=== PATIENT | male | born 1990 | race Caucasian/White ===

== ENCOUNTER 2020-06-17 08:05 | Emergency (ER) | payer SELFPAY ==
[2020-06-17 08:25] VITALS: BP 154/87; PULSE 116; RESP 16; TEMP 36.7; O2SAT 99
--- NOTE | 2020-06-17 08:29 | ED.SKABFB ---
HPI - Skin/Abscess/Foreign Bdy General Chief complaint: Urogenital-Male Stated complaint: Urogenital-male Time Seen by Provider: 06/17/20 08:30 Source: patient Mode of arrival: ambulatory Limitations: no limitations History of Present Illness HPI narrative: Danny White is a 29 yo male with a hx of testicular swelling and urinary stricture comes to express care with R testicular swelling and tenderness. Last incidence of testicular swelling was about 4 years ago when he was treated through express care here with abx and when symptoms did not improve, went to [facility] got getting an ultrasound and more abx. States he is in a monogamous relationship and is confident this is not STD related. Patient states when he is sitting still the pain is about 4.5 but if he touches the testicle or removes is 7.5/10.started Thursday night Related Data Allergies Allergy/AdvReac Type Severity Reaction Status Date / Time No Known Allergies Allergy Verified 06/17/20 08:29 Review of Systems Review of Systems: Narrative: CONSTITUTIONAL: Denies fever, chills, sweats. EYES: Denies visual changes, redness, discharge. ENT: Denies rhinorrhea, congestion, sore throat, otalgia. CARDIOVASCULAR: Denies chest pain, palpitations, edema. RESPIRATORY: Denies dyspnea, wheezing, cough GASTROINTESTINAL: Denies abdominal pain, nausea, vomiting, diarrhea. GENITOURINARY: Denies dysuria, hematuria, abnormal discharge. Large tender right testicle SKIN: Denies rash or itching. NEUROLOGIC: Denies numbness, or focal weakness. PSYCHIATRIC: Denies anxiety or depression. [facility] Past Medical History Medical History Anastomotic stricture of urinary tract Family History Family History (Updated 06/17/20 @ 08:41 by Barbara Serrano CNP) Other No active medical problems Social History Social History (Updated 06/17/20 @ 08:42 by Barbara Serrano CNP) Smoking status: Never smoker Alcohol intake: current Gender identity (if verbalized by the patient): Male Comments At time of signature, I agree with nursing past medical, surgical, social and family history. There is no relevant family history pertinent to the presenting complaint. Patient's blood pressure and pulse are elevated due to pain from testicular swelling- sent to [facility] Exam Narrative: Exam Narrative: GENERAL: This is a well-nourished, well-developed patient, in mild distress. HEAD: normocephalic, atraumatic. EYES: Sclera clear/white. Vision is grossly intact. EARS: External ears normal. Hearing grossly intact. NOSE: External nose normal without nasal discharge, nares without redness, no rhinorrhea. THROAT: Mucous membranes moist, NECK: Neck supple, CARDIOVASCULAR: Regular rate and rhythm without murmurs, gallops, or rubs. RESPIRATORY: Clear to auscultation. Breath sounds equal bilaterally. No wheezes, rales, or rhonchi. GASTROINTESTINAL: Abdomen soft, : R testicle swollen, tender, not indurated, pain elicited with palpation SKIN: warm, intact with no suspicious lesions or rash, good texture and turgor. NEURO: awake, alert, and oriented to person, place and time. There were no obvious focal neurologic abnormalities. Steady gait EXTREMITIES: Normal range of motion. BACK: Nontender without deformity Course Course Emergency Course: Came to express care with enlarged right testicle After examination and UA which shows 1+ leukocytes, trace blood sent to [facility] for ultrasound of testicles Vital Signs Vital signs: Vital Signs Temperature 98.0 F 06/17/20 08:25 Pulse Rate 116 H 06/17/20 08:25 Respiratory Rate 16 06/17/20 08:25 Blood Pressure 154/87 H 06/17/20 08:25 Pulse Oximetry 99 06/17/20 08:25 Temperature 98.0 F 06/17/20 08:25 Pulse Rate 116 H 06/17/20 08:25 Respiratory Rate 16 06/17/20 08:25 Blood Pressure 154/87 H 06/17/20 08:25 Pulse Oximetry 99 06/17/20 08:25 MDM - Skin/Abs
== END 2020-06-17 08:48 | disposition short-term general hospital (02) ==
PROVIDERS: Emergency Provider Nurse Practitioner
DX: N50.89 Other specified disorders of the male genital organs (principal)
CPT/HCPCS: 81003; 99213; G0463

== ENCOUNTER 2020-06-17 09:01 | Emergency (ER) | payer SELFPAY ==
--- NOTE | ~2020-06-17 | US_ITS ---
EXAMINATION: US scrotum doppler DATE: 06/17/2020 10:23 INDICATION: Right testicular pain and swelling. TECHNIQUE: Grayscale and Doppler ultrasound images of the testes were obtained. COMPARISON: None. FINDINGS: The right testis measures 4.3 x 3.5 x 1.9 cm. The left testis measures 5.2 x 2.9 x 2.3 cm. There is normal vascular flow to both testes. The right epididymis is enlarged and heterogeneous with increased vascular flow, consistent with epididymitis. The left epididymis is normal with normal vas cular flow. There is a small right hydrocele. There is a left-sided varicocele. IMPRESSION: 1. Right-sided epididymitis. 2. Small right hydrocele. Reviewed, dictated and finalized at location A. [facility] [employer]
[2020-06-17 09:06] VITALS: BP 139/98; PULSE 101; RESP 16; TEMP 36.1; O2SAT 97
[2020-06-17 09:09] VITALS: BP 139/98; PULSE 98; RESP 18; TEMP 36.6; O2SAT 98
[2020-06-17] MEDS: KETOROLAC (*BKC) 60 MG/2 ML VIAL IM (10:24)
[2020-06-17 10:34] LABS: Add Urine Microscopic? YES; Appearance Urine Clear (Clear); Bilirubin Urine Negative (Negative); Color Urine Yellow (Yellow); Glucose Urine UA Negative (Negative); Ketones Urine Negative (Negative); Leukocyte Esterase Ur 2+ LEU/UL (Negative); Mucus Urine Heavy /lpf; Nitrate Urine Negative (Negative); Protein Urine 1+ mg/dL (Negative); WBC Urine 51-75 /hpf
[2020-06-17 10:42] LABS: Blood Urine Negative (Negative); Specific Grav Ur 1.033 (1.001-1.035)
[2020-06-17 10:54] VITALS: TEMP 36.6
--- NOTE | 2020-06-17 11:14 | ED.MALEGU ---
HPI - Male Genitourinary General Chief complaint: Urogenital-Male Stated complaint: swollen right testicle Time Seen by Provider: 06/17/20 09:11 History of Present Illness HPI Narrative: Patient is a 29-year-old male who presents ER with right testicular pain and swelling from the urgent care. Patient reports he has history of epididymitis and that he also has history of urethral stricture in the past that had to be dilated. Reports he sexually active with one partner over the last 2 years and does not feel like he is at risk for sexual transmitted infection. Reports no penile discharge. He would however like an STD check just to clear the air. No fevers or chills or sweats. Pain is increased with movement. Swelling is been ongoing for last couple of days. Related Data Allergies Allergy/AdvReac Type Severity Reaction Status Date / Time No Known Allergies Allergy Verified 06/17/20 09:14 Review of Systems Constitutional: Constitutional: Denies chills, Denies fever(s) and Denies weakness Gastrointestinal: Gastrointestinal: Denies abdominal pain, Denies nausea and Denies vomiting Genitourinary: Genitourinary: Denies genital lesions, Reports dysuria, Reports testicular pain and Denies urinary frequency PMFSH Past Medical History Medical History (Updated 06/17/20 @ 11:20 by Raza Hill MD) Anastomotic stricture of urinary tract Epididymitis Family History Family History (Updated 06/17/20 @ 08:41 by Barbara Serrano CNP) Other No active medical problems Social History Social History (Updated 06/17/20 @ 08:42 by Barbara Serrano CNP) Smoking status: Never smoker Alcohol intake: current Gender identity (if verbalized by the patient): Male Exam Narrative: Exam Narrative: GENERAL: Well-appearing, well-nourished, and in no acute distress. HEAD: Normocephalic, atraumatic. : Normal-appearing circumcised penis without drainage from the urethra, normal-appearing left testicle, right testicle swollen with tenderness over the epididymis and slight redness to the outer part of the scrotum. SKIN: Warm, dry, no rash. NEURO: Alert and oriented x3. PSYCH: Normal mood and affect. Course Course Emergency Course: Patient informed results. Discharge home with pain medication antibiotics. Recommend follow-up with urology. Vital Signs Vital signs: Vital Signs Temperature 97 F L 06/17/20 09:06 Pulse Rate 101 H 06/17/20 09:06 Respiratory Rate 16 06/17/20 09:06 Blood Pressure 139/98 H 06/17/20 09:06 Pulse Oximetry 97 06/17/20 09:06 Temperature 97.8 F 06/17/20 10:54 Pulse Rate 98 06/17/20 09:09 Respiratory Rate 18 06/17/20 09:09 Blood Pressure 139/98 H 06/17/20 09:09 Pulse Oximetry 98 06/17/20 09:09 MDM - Male Genitourinary Lab Data Labs: Lab Results 06/17/20 06/17/20 Range/Units 09:35 10:22 Urine Color Yellow (Yellow) Urine Appearance Clear (Clear) Urine pH 5.0 (5.0-9.0) Ur Specific Fleming 1.033 (1.001-1.035) Urine Protein 1+ H (Negative) mg/dL Urine Glucose (UA) Negative (Negative) mg/dL Urine Ketones Negative (Negative) mg/dL Ur Blood (Man) Negative (Negative) Urine Nitrate Negative (Negative) Urine Bilirubin Negative (Negative) Urine Urobilinogen 4.0 H (<2.0) mg/dL Leukocyte Esterase Rfl 2+ H (Negative) DELORIS/UL Urine RBC 6-10 H (0-2) /hpf Urine WBC 51-75 H /hpf Urine Mucus Heavy H /lpf C.trachomatis RNA (TMA) Pending N.gonorrhoeae RNA (TMA) Pending Imaging Data Radiologist's impression: ITS Impressions Scrotum Ultrasound 06/17/20 10:28 IMPRESSION: 1. Right-sided epididymitis. 2. Small right hydrocele. Discharge Plan Discharge Clinical Impression: Epididymitis Patient Disposition: Home, Self-Care Condition: Stable Instructions: Antibiotic Form, Epididymitis (ED) Additional Instructions: Return to the ER if you have worsening pain, you cannot
[2020-06-17 11:33] VITALS: BP 136/78; PULSE 84; RESP 18; O2SAT 100
== END 2020-06-17 11:34 | disposition home or self-care (01) ==
PROVIDERS: Emergency Provider Emergency Medicine
DX: N45.1 Epididymitis (principal)
CPT/HCPCS: 76870; 81001; 87086; 87491; 87591; 93976; 96372; 99284; J1885

== ENCOUNTER 2021-07-10 17:17 | Emergency (ER) | payer OTHER, SELFPAY ==
[2021-07-10 17:28] VITALS: BP 134/81; PULSE 63; RESP 16; TEMP 37.3; O2SAT 98
--- NOTE | 2021-07-10 18:05 | ED.GENADULT ---
HPI - General Adult General Chief complaint: Upper Respiratory Infection Stated complaint: sore throat Source: patient Mode of arrival: ambulatory Limitations: no limitations History of Present Illness HPI narrative: Patient is a 30-year-old male who presents to the [facility] via POV for evaluation of a sore throat that began yesterday. Additionally, patient reports exudate, chills, swollen lymph nodes, and intermittent, frontal headaches. Subjective fever. Patient denies taking temperature with thermometer. Mild relief with ibuprofen. Swallowing worsens throat pain. He reports his pain is constant and sharp in nature. History of strep throat. Today symptoms are identical to previous episodes of strep. Patient is fully vaccinated against Covid and denies known exposure to sick contacts. Related Data Allergies Allergy/AdvReac Type Severity Reaction Status Date / Time No Known Allergies Allergy Verified 07/10/21 17:20 Review of Systems Review of Systems: Pertinent negatives: fever, poor p.o. intake, myalgias, flu-like symptoms, ear pain/drainage, sinus trouble, severe persistent headaches, nasal congestion, rhinorrhea, lymphadenopathy, dizziness, LOC, inability to swallow, drooling, hoarseness, abdominal pain, nausea, vomiting, diarrhea, cough, wheezing, sob, chest pain, heart murmurs, and heart palpations. PMFSH Past Medical History Medical History Anastomotic stricture of urinary tract Epididymitis Family History Family History Other No active medical problems Social History Social History Smoking status: Never smoker Alcohol intake: current Gender identity (if verbalized by the patient): Male Comments I have reviewed and agree with the patient's past medical, surgical, social, and family hx as documented by the RN. There is no relevant family history pertinent to the presenting complaint. Exam Narrative: GENERAL: Well-appearing, well-nourished, and in no acute distress. HEAD: Normocephalic, atraumatic. No sinus tenderness or facial swelling appreciated. EYES: PERRLA and EOMI. No evidence of erythema, swelling, or drainage. ENT: Bilateral external ears and ear canals normal. Bilateral TMs are normal.No TM perforation. Nares clear, no rhinorrhea or epistaxis. Bilateral turbinates without erythema/ swelling. Mucous membranes moist and pink. Uvula is midline without erythema and swelling. Bilateral tonsils are moderately erythematous and edematous with a moderate amount of exudate. No evidence of petechial rash, cobblestoning, lesions, ulcers, peritonsillar abscess, tenting, or drooling. voice normal. Breath odor-smells of rotten eggs. NECK: Supple. Bilateral submandibular lymphadenopathy appreciated. No cervical lymphadenopathy or nuchal rigidity appreciated. CHEST: Bilateral lung dye are clear to auscultation. No respiratory distress. No evidence of cough or pleuritic cp upon examination. HEART: Regular rate and rhythm. No murmur, gallop, or rub heard. EXTREMITIES: Normal range of motion. No edema. SKIN: Warm, dry, no rash. NEURO: No focal deficits. Alert and oriented x3. Course Course Emergency Course: The patient/guardian displays adequate decision making capability and despite a detailed discussion of alternatives, benefits, risks, and consequences refuses COVID-19 testing due to time constraints. Mother is waiting in lobby and is boarding a plane soon. Vital Signs Vital signs: Vital Signs Temperature 99.2 F 07/10/21 17:28 Pulse Rate 63 07/10/21 17:28 Respiratory Rate 16 07/10/21 17:28 Blood Pressure 134/81 07/10/21 17:28 Pulse Oximetry 98 07/10/21 17:28 Temperature 99.2 F 07/10/21 17:28 Pulse Rate 63 07/10/21 17:28 Respiratory Rate 16 07/10/21 17:28 Blood Pressure 134/
== END 2021-07-10 18:14 | disposition home or self-care (01) ==
PROVIDERS: Emergency Provider Nurse Practitioner Family
DX: J03.90 Acute tonsillitis, unspecified (principal)
CPT/HCPCS: 87081; 87880; 99213; G0463

== ENCOUNTER 2022-02-08 08:47 | Emergency (ER) | payer OTHER, SELFPAY ==
[2022-02-08 08:54] VITALS: BP 112/61; PULSE 84; RESP 16; TEMP 36.8; O2SAT 100
--- NOTE | 2022-02-08 08:55 | ED.URI ---
HPI - URI/Sore Throat General Stated Complaint: sore throat Time Seen by Provider: 02/08/22 08:58 Source: patient Mode of arrival: ambulatory Limitations: no limitations History of Present Illness HPI Narrative: Mr. White is a 31-year-old male patient presenting to the clinic today with complaints of sore throat, swollen glands, and body aches x1 day. He reports that he usually gets strep every 2 years and had strep back in June. He denies any known exposure to anybody with COVID, flu, or strep. He denies any known fever however he did have night sweats last night. Related Data Allergies Allergy/AdvReac Type Severity Reaction Status Date / Time No Known Allergies Allergy Verified 02/08/22 09:02 Review of Systems Review of Systems: Pertinent positives per HPI. Patient denies any fever, rash, headache, visual changes, dizziness, cough, runny nose, shortness of breath, chest pain, palpitations, nausea, vomiting, diarrhea, constipation, abdominal pain, or any urinary issues. PMFSH Past Medical History Medical History Anastomotic stricture of urinary tract Epididymitis Family History Family History Other No active medical problems Social History Social History Smoking status: Never smoker Alcohol intake: current Gender identity (if verbalized by the patient): Male Comments At the time of my signature, I reviewed and agree with the nursing past medical, surgical, social, and family history. There is no relevant family history pertinent to the patient complaint. Exam Narrative: General: Well-developed, well nourished, in no apparent distress Head: Normocephalic, atraumatic Eyes: Pupils equally round and reactive to light bilaterally, EOM intact, sclera and conjunctive clear, no discharge, lids normal Ears: TMs intact and clear, ear canals clear, no drainage, grossly hearing normal. Nose: Nares patent, no discharge, no inflammation, no sinus tenderness. Mouth: Oropharynx without lesions or masses, good dentition, MMM. Oropharynx red with 1+ tonsillar enlargement Neck: Supple, trachea midline, positive enlargement of anterior cervical nodes, no thyroid masses or goiter palpable. Cardio: Regular rate and rhythm, s1 and s2 normal, no murmur appreciated. Resp: Clear to auscultation bilaterally anteriorly and posteriorly, no rhonchi, rales, wheezing or rubs Course Course Emergency Course: Portions of this record may have been created with voice recognition software. Level of Care: Express Care Visit Vital Signs Vital signs: Vital Signs Temperature 36.8 C 02/08/22 08:54 Pulse Rate 84 02/08/22 08:54 Respiratory Rate 16 02/08/22 08:54 Blood Pressure 112/61 02/08/22 08:54 Pulse Oximetry 100 02/08/22 08:54 Oxygen Delivery Room Air 02/08/22 08:54 Temperature 36.8 C 02/08/22 08:54 Pulse Rate 84 02/08/22 08:54 Respiratory Rate 16 02/08/22 08:54 Blood Pressure 112/61 02/08/22 08:54 Pulse Oximetry 100 02/08/22 08:54 Oxygen Delivery Room Air 02/08/22 08:54 Vital signs reviewed MDM - URI/Sore Throat MDM Narrative Medical decision making narrative: At the time of visit patient is resting comfortably on the exam table. Strep screen was obtained and was negative in the clinic. We will send for culture. I suspect the patient has viral pharyngitis and supportive measures were discussed with the patient and he voiced understanding of discharge instructions and agrees to the treatment plan. Differential Diagnosis Differential diagnosis: Likely upper respiratory infection, sinusitis, viral infection, bronchitis, influenza, pharyngitis and other (COVID) Discharge Plan Discharge Clinical Impression: Pharyngitis Patient Disposition: Home, Self-Care Condition: Stable Instr
== END 2022-02-08 09:20 | disposition home or self-care (01) ==
PROVIDERS: Emergency Provider Nurse Practitioner Family
DX: J02.9 Acute pharyngitis, unspecified (principal)
CPT/HCPCS: 87081; 87880; 99213; G0463